=== PATIENT | male | born 1995 | race Caucasian/White ===

== ENCOUNTER 2020-01-30 15:29 | Emergency (ER) | payer SELFPAY ==
[~2020-01-30] VITALS: Ht 180.3 cm; Wt 149.7 kg
[2020-01-30 15:35] VITALS: BP_SYST 138
[2020-01-30] MEDS ORDERED: BACITRACIN 1 GM OINT TP ONE (16:00)
[2020-01-30] MEDS ORDERED: LIDOCAINE 1% 10 MG/ML, 20 ML MDV INJ ONE (16:00)
[2020-01-30] MEDS ORDERED: IBUPROFEN 800 MG TABLET PO ONE (16:45)
[2020-01-30 16:54] VITALS: BP_SYST 138
== END 2020-01-30 16:54 | disposition home or self-care (01) ==
LOC: SED 15:29
DX: S61.211A Laceration without foreign body of left index finger without damage to nail, initial encounter (principal); W26.8XXA Contact with other sharp object(s), not elsewhere classified, initial encounter; Y93.G1 Activity, food preparation and clean up; Y92.89 Other specified places as the place of occurrence of the external cause; Y99.8 Other external cause status
CPT/HCPCS: 12001; 99282; J2001

== ENCOUNTER 2020-02-06 14:41 | Emergency (ER) | payer SELFPAY ==
[~2020-02-06] VITALS: Ht 180.3 cm; Wt 154.2 kg
[2020-02-06 14:48] VITALS: BP_SYST 148
--- NOTE | 2020-02-06 15:00 | NUR ---
AMBULATED TO BED 8
--- NOTE | 2020-02-06 15:25 | NUR ---
DR. PEREZ AT BEDSIDE
--- NOTE | 2020-02-06 15:41 | NUR ---
Patient given written and verbal discharge instructions and verbalizes understanding. ER MD discussed with patient the results and treatment provided. Patient in stable condition. ID arm band removed. Patient educated on pain management and to follow up with PMD. Pain Scale []. Opportunity for questions provided and answered. Medication side effect fact sheet provided.
[2020-02-06 15:44] VITALS: BP_SYST 148
== END 2020-02-06 15:44 | disposition home or self-care (01) ==
LOC: SED 14:41
DX: S61.211D Laceration without foreign body of left index finger without damage to nail, subsequent encounter (principal); X58.XXXD Exposure to other specified factors, subsequent encounter
CPT/HCPCS: 99281